=== PATIENT | female | born 1970 | race Hispanic/Latino ===

== ENCOUNTER 2021-07-19 07:18 | Day surgery (SDC) | payer BC, OTHER ==
[2021-07-16 12:43] LABS: BASOPHILS % (AUTO) 0.5 % (0.0-5.0); EOSINOPHILS % (AUTO) 4.5 % (0.0-8.0); HEMATOCRIT 42.1 % (36-48); LYMPHOCYTES % (AUTO) 35.1 % (21.0-51.0); MEAN CORPUSCULAR HEMOGLOBIN 30.2 pg (27.0-33.0); MEAN CORPUSCULAR HGB CONC 32.3 g/dL (32.0-36.0); MEAN CORPUSCULAR VOLUME 93.3 fL (79-99); MONOCYTES % (AUTO) 4.9 % (3.0-13.0); NEUTROPHILS % (AUTO) 54.5 % (40.0-77.0); PLATELET COUNT (AUTO) 184 K/uL (130-400); RED BLOOD CELL COUNT(AUTO) 4.51 MIL/uL (4.00-5.50); RED CELL DISTRIBUTION WIDTH 12.5 % (11.0-15.5); WHITE BLOOD COUNT (AUTO) 7.4 K/uL (4.8-10.8)
[2021-07-16 12:54] LABS: POTASSIUM 4.3 mmol/L (3.5-5.1)
[2021-07-18 10:54] VITALS: BP 154/83
[~2021-07-19] VITALS: Ht 154.9 cm; Wt 91.5 kg
[2021-07-19] VITALS (20 sets, daily range): BP systolic 95–136; BP diastolic 50–84
[2021-07-19] MEDS ORDERED: LIDOCAINE PF 100MG/5ML (2%) SYRINGE 5ML ONE (07:48)
[2021-07-19] MEDS ORDERED: DEXAMETHASONE SOD PHOSPHATE 10MG/ML 1ML VIAL ONE (07:48)
[2021-07-19] MEDS ORDERED: PROPOFOL 10 MG/ML 20ML VIAL IV ONE (07:49)
[2021-07-19] MEDS ORDERED: FENTANYL CITRATE PF 50 MCG/1 ML 2ML VIAL ONE (07:49)
[2021-07-19] MEDS ORDERED: ONDANSETRON 4MG INJ ONE (07:49)
[2021-07-19] MEDS ORDERED: MIDAZOLAM HCL 1 MG/ML 2ML VIAL ONE (07:49)
[2021-07-19] MEDS ORDERED: MEPERIDINE-PF 25 MG/ML SYG ONE (07:53)
[2021-07-19] MEDS ORDERED: CALDOLOR 800MG+NS 250ML 250 ML IV PRN (08:00)
[2021-07-19] MEDS ORDERED: LACTATED RINGERS 1000ML 1,000 ML IV SCH (08:00)
[2021-07-19] MEDS ORDERED: CEFAZOLIN SODIUM 1 GM VIAL IVP ONE (08:00)
[2021-07-19] MEDS ORDERED: EPHEDRINE SULFATE 50 MG/ML AMPULE ONE (08:38)
[2021-07-19] MEDS ORDERED: CEFAZOLIN SODIUM 2 GM VIAL IV ONE (08:40)
== END 2021-07-19 12:10 | disposition home or self-care (01) ==
LOC: DAH 07:18
PROVIDERS: ATTEND Obstetrics & Gynecology
DX: N39.3 Stress incontinence (female) (male) (principal); Z20.822 Contact with and (suspected) exposure to COVID-19; N81.11 Cystocele, midline; N93.9 Abnormal uterine and vaginal bleeding, unspecified; I10 Essential (primary) hypertension; E11.9 Type 2 diabetes mellitus without complications; E78.00 Pure hypercholesterolemia, unspecified; J45.909 Unspecified asthma, uncomplicated; E66.01 Morbid (severe) obesity due to excess calories; F32.9 Major depressive disorder, single episode, unspecified; F41.9 Anxiety disorder, unspecified; Z83.42 Family history of familial hypercholesterolemia; Z83.3 Family history of diabetes mellitus; Z82.49 Family history of ischemic heart disease and other diseases of the circulatory system; Z68.38 Body mass index [BMI] 38.0-38.9, adult; Z79.899 Other long term (current) drug therapy
CPT/HCPCS: 36415; 57220; 57240; 58558; 80048; 82948 ×2; 84703; 85025; 86850; 86900; 86901; 87635; A4215; A4216; A4221 ×2; A4222 ×2; A4223 ×4; A4351; A4355; A4606; A4663 ×2; A6260; C9803; J0690; J1100; J1741; J2001; J2175; J2250; J2405; J2704; J3010; J3490; J7030 ×2

== ENCOUNTER 2021-11-13 02:13 | Emergency (ER) | payer BC ==
[~2021-11-13] VITALS: Ht 154.9 cm; Wt 89.8 kg
[2021-11-13] MEDS ORDERED: DiphenhydrAMINE HCL 50 MG/ML VIAL ONE (04:24)
[2021-11-13 04:25] LABS: BASOPHILS % (AUTO) 0.4 % (0.0-5.0); EOSINOPHILS % (AUTO) 2.9 % (0.0-8.0); HEMATOCRIT 41.2 % (36-48); LYMPHOCYTES % (AUTO) 32.1 % (21.0-51.0); MEAN CORPUSCULAR HEMOGLOBIN 29.6 pg (27.0-33.0); MEAN CORPUSCULAR HGB CONC 33.3 g/dL (32.0-36.0); MONOCYTES % (AUTO) 4.4 % (3.0-13.0); NEUTROPHILS % (AUTO) 59.6 % (40.0-77.0); PLATELET COUNT (AUTO) 192 K/uL (130-400); RED BLOOD CELL COUNT(AUTO) 4.63 MIL/uL (4.00-5.50); RED CELL DISTRIBUTION WIDTH 12.3 % (11.0-15.5); WHITE BLOOD COUNT (AUTO) 10.4 K/uL (4.8-10.8)
[2021-11-13] MEDS ORDERED: PREDNISONE 20 MG TABLET ONE (04:25)
[2021-11-13] MEDS ORDERED: DiphenhydrAMINE HCL 50 MG/ML VIAL IV ONE (04:30)
[2021-11-13] MEDS ORDERED: ALBUTEROL 0.083% 2.5 MG/3 ML INH IH ONE ×3 (04:30)
[2021-11-13] MEDS ORDERED: PREDNISONE 20 MG TABLET PO ONE (04:30)
[2021-11-13 04:31] LABS: CREATININE 0.8 mg/dL (0.5-1.5); POTASSIUM 4.3 mmol/L (3.5-5.1)
[2021-11-13 04:35] LABS: ALBUMIN 3.6 g/dL (3.5-5.0); BILIRUBIN,TOTAL 0.2 mg/dL (0.2-1.0); TOTAL PROTEIN, SERUM 8.2 g/dL (6.0-8.3)
[2021-11-13 04:53] LABS: B-TYPE NATRIURETIC PEPTIDE 8 pg/mL (0-100)
[2021-11-13] MEDS ORDERED: ALBU2.5V2 IH (05:54)
[2021-11-13] MEDS ORDERED: PRED20TA3 PO (05:54)
[2021-11-13] MEDS ORDERED: ALBU8.5H8 IH (05:54)
[2021-11-13 06:00] VITALS: BP 127/68
== END 2021-11-13 06:13 | disposition home or self-care (01) ==
LOC: EDH 02:13
DX: J45.901 Unspecified asthma with (acute) exacerbation (principal); Z20.822 Contact with and (suspected) exposure to COVID-19; Z79.899 Other long term (current) drug therapy
CPT/HCPCS: 36415; 71045; 80053; 83880; 85025; 87635; 87804 ×2; 93005; 94640; 96374; 99284; C9803; J1200

== ENCOUNTER 2022-05-19 23:55 | Emergency (ER) | payer BC ==
[~2022-05-19] VITALS: Ht 154.9 cm; Wt 87.5 kg
[~2022-05-19 23:55] MED LIST: ALBU2.5V2 IH; ALBU8.5H8 IH; PRED20TA3 PO
[2022-05-20 01:30] LABS: BASOPHILS % (AUTO) 0.4 % (0.0-5.0); EOSINOPHILS % (AUTO) 2.3 % (0.0-8.0); LYMPHOCYTES % (AUTO) 33.2 % (21.0-51.0); MEAN CORPUSCULAR HEMOGLOBIN 30.1 pg (27.0-33.0); MEAN CORPUSCULAR HGB CONC 33.8 g/dL (32.0-36.0); MONOCYTES % (AUTO) 5.9 % (3.0-13.0); NEUTROPHILS % (AUTO) 57.8 % (40.0-77.0); PLATELET COUNT (AUTO) 188 K/uL (130-400); RED BLOOD CELL COUNT(AUTO) 4.38 MIL/uL (4.00-5.50); RED CELL DISTRIBUTION WIDTH 12.4 % (11.0-15.5); WHITE BLOOD COUNT (AUTO) 8.3 K/uL (4.8-10.8)
[2022-05-20 01:37] LABS: CREATININE 0.9 mg/dL (0.5-1.5); POTASSIUM 4.5 mmol/L (3.5-5.1)
[2022-05-20 01:46] LABS: ALBUMIN 3.4 g/dL (3.5-5.0)
[2022-05-20 01:59] LABS: B-TYPE NATRIURETIC PEPTIDE 13 pg/mL (0-100)
[2022-05-20 02:15] VITALS: BP 128/69
== END 2022-05-20 02:18 | disposition home or self-care (01) ==
LOC: EDH 23:55
DX: K30 Functional dyspepsia (principal); R07.89 Other chest pain; E11.9 Type 2 diabetes mellitus without complications; Z79.52 Long term (current) use of systemic steroids
CPT/HCPCS: 36415; 80053; 83880; 84484; 85025; 93005

== ENCOUNTER 2022-11-04 20:52 | Emergency (ER) | payer BC ==
[~2022-11-04] VITALS: Ht 154.9 cm; Wt 87.1 kg
[2022-11-04 20:55] VITALS: BP 149/99
[2022-11-04] MEDS ORDERED: DIAZ5TAB PO (21:12)
[2022-11-04] MEDS ORDERED: DIAZEPAM 5 MG TABLET PO ONE (21:30)
== END 2022-11-04 21:43 | disposition home or self-care (01) ==
LOC: EDH 20:52
DX: M54.32 Sciatica, left side (principal); Z79.899 Other long term (current) drug therapy

== ENCOUNTER 2025-03-11 22:09 | Emergency (ER) | payer BC ==
[~2025-03-11] VITALS: Ht 154.9 cm; Wt 83.5 kg
[~2025-03-11 22:09] MED LIST changes: +DIAZ5TAB PO
--- NOTE | 2025-03-11 22:20 | ERN ---
ED Note History of Present Illness Stated Complaint: HEADACHE, BLURRY VISION, DIZZINESS, GBW, patient comes to the ED because over the last three weeks. Patient has had intermittent headache intermittent blurry vision intermittent dizziness generalized body weakness she said this happens when she has that has positional when she is turning her head when she ambulates when she sits up. She says she does have diabetes otherwise denies any blood pressure issues dyslipidemia previous heart attacks or strokes no falls trips traumas no fevers chills cough congestion runny nose no stiff neck Chief Complaint: Multiple Complaints Time Seen by MD: 22:11 Allergies: Coded Allergies: No Known Allergies (Verified Allergy, Unknown, 07/17/21) Home Meds Active Scripts Diazepam (Valium) 5 Mg Tablet, 5 MG PO TID PRN for MODERATE PAIN, #7 TAB Prov:UZIEL RANGEL 11/04/22 Albuterol Sulfate (Albuterol Sulfate) 2.5 Mg/3 Ml Vial.neb, 2.5 MG IH Q4HPRN, #30 INH 0 Refills Prov:JOLIE WELSH MD 11/13/21 Albuterol Sulfate (Proair Hfa) 8.5 Gm Hfa.aer.ad, 2 PUFF IH Q4HPRN, #1 INHALER 0 Refills Prov:JOLIE WELSH MD 11/13/21 Prednisone (Prednisone) 20 Mg Tablet, 40 MG PO DAILY for 4 Days, #8 TAB 0 Refills Prov:JOLIE WELSH MD 11/13/21 Past Medical History Past Medical History: No Pertinent History Surgical History: None Social History: Negative, Lives with family History: Not Applicable Review of System Dictation Constitutional: Negative for fever,chills, and weight loss Eyes: Negative for injury, pain,redness, and discharge ENT: Negative for injury,pain or swelling Cardiovascular: Negative for chest pain, palpitations, and edema Respiratory: Negative for shortness of breath, cough, and wheezing, Abdomen/GI: Negative for abdominal pain, nausea, vomiting, diarrhea, and constipation Back: Negative for injury and pain : Negative for injury, bleeding and discharge MS/Extremity: Negative for injury and deformity Skin: Negative for rash, and discoloration Neuro: Negative for headache, weakness, numbness, tingling, and seizure Psych: Negative for suicide ideation, homicidal ideation, and hallucinations Initial Vital Sign VS Vital Signs Date Time Temp Pulse Resp B/P (MAP) Pulse Ox O2 Delivery O2 Flow Rate FiO2 03/11/25 22:11 98.4 80 16 149/82 97 Room Air 03/11/25 22:40 0 21 Physical Exam Dictation General: awake, alert, NAD Head/Face: Normocephalic, atraumatic Eyes: PERRL, EOMI, vision at baseline ENT: oral cavity clear, TMs clear, no signs of infection Neck: Trachea midline, supple, no nuchal rigidity Cardiovascular: RRR, normal S1/S2, No MRGs, no JVD Respiratory: CTAB, no respiratory distress, No rales or wheezes Abdomen: Soft, non-tender, non-distended, normal bowel sounds, no guarding or rebound. Skin: Warm, dry, normal turgor, no rash MS/Extremity: Pulses equal, no cyanosis, neurovascular intact, FROM Neuro: COAx4, GCS 15, strength 5/5, CN 2-12 intact, normal cerebellar exam, normal gait, Psych: Normal behavior, mood, and affect normal Patient is alert and oriented speaking she is able to ambulate. NIH of 0 cerebellar testing with his on that has within normal limits no other difficulties or issues. Results (Laboratory/Radiology) Laboratory/Radiology Laboratory Tests Test 03/11/25 22:37 White Blood Count 12.6 K/uL (4.8-10.8) H Red Blood Count 4.73 MIL/uL (4.00-5.50) Hemoglobin 14.5 g/dL (12.0-16.0) Hematocrit 41.5 % (36-48) Mean Corpuscular Volume 87.7 fL (79-99) Mean Corpuscular Hemoglobin 30.7 pg (27.0-33.0) Mean Corpuscular Hemoglobin Concent 34.9 g/dL (32.0-36.0) Red Cell Distribution Width 12.0 % (11.0-15.5) Platelet Count 77 K/uL (130-400) L Mean Platelet Volume 12.6 fL (7.5-10.5) H Immature Granulocyte % (Auto) 0.6 % (0-1) Neutrophils (%) (Auto) 76.6 % (40.0-77.0) Lymphocytes (%) (Auto) 19.6 % (21.0-51.0) L Monocytes (%) (Auto) 2.9 % (3.0-13.0) L Eosinophils (%) (Auto) 0.1 % (0.0-8.0) Basophils (%) (Auto) 0.2 % (0.0-5.0) Neutrophils # (Auto) 9.6 K/uL (1.8-7.7) H Lymphocytes # (Auto) 2.5 K/uL (1.0-4.8) Monocytes # (Auto) 0.4 K/uL (0.1-1.0) Eosinophils # (Auto) 0.01 K/uL (0.00-0.70) Basophils # (Auto) 0.02 K/uL (0.00-0.20) Absolute Immature Granulocyte (auto 0.08 K/uL (0-1) Nucleated Red Blood Cells 0.0 % (0.0-0.19) Sodium Level 132 mmol/L (136-145) L Potassium Level 4.6 mmol/L (3.5-5.1) Chloride Level 99 mmol/L (101-111) L Carbon Dioxide Level 23 mmol/L (21-32) Blood Urea Nitrogen 22 mg/dL (7-18) H Creatinine 0.9 mg/dL (0.5-1.0) Glomerular Filtration Rate Calc 76 mL/min (>90) Random Glucose 339 mg/dL (70-105) H Total Calcium 9.4 mg/dL (8.5-10.1) Troponin I High Sensitivity 5 ng/L (4-50) ED Course ED Course Orders Procedure Category Date Status Time Cbc With Differential LAB 03/11/25 Complete 22:16 Ct Head/Brain W/O CT 03/11/25 Resulted Contrast 22:16 Chest 1vw RAD 03/11/25 Resulted 22:16 12 Lead Ekg Tracing- EKG 03/11/25 Logged Technical 22:16 Troponin I High LAB 03/11/25 Complete Sensitivity 22:16 Basic Metabolic Panel LAB 03/11/25 Complete 22:16 Lactated Ringers PHA 03/11/25 Complete 1000ml (Lactated 22:30 Morphine 4mg Syg PHA 03/11/25 Complete (Morphine 4mg Syg) 22:30 Ondansetron 4mg Inj PHA 7/26/25 Complete (Zofran 4mg Inj) 22:30 Current Medications Medications (Trade) Dose Ordered Sig/Stefani Route PRN Reason Start Time Stop Time Status Last Admin Dose Admin Lactated Ringer's 1,000 ml @ 0 mls/hr ONCE ONCE IV 03/11/25 22:30 03/11/25 22:31 DC 03/11/25 23:16 Morphine Sulfate (morPHINE 4MG SYG) 4 mg ONCE ONCE IVP 03/11/25 22:30 03/11/25 22:31 DC 03/11/25 23:16 Ondansetron HCl (zoFRAN 4MG INJ) 4 mg ONCE ONCE IVP 03/11/25 22:30 03/11/25 22:31 DC 03/11/25 23:15 Vital Signs Date Time Temp Pulse Resp B/P (MAP) Pulse Ox O2 Delivery O2 Flow Rate FiO2 03/11/25 22:40 98.1 79 18 142/77 98 Room Air* 0 21 03/11/25 22:11 98.4 80 16 149/82 97 Room Air Medical Decision Making MDM I told the patient. That this is likely. Migraine headache she said she has a had this symptomatology before but usually went away on its own. No signs or presentation presentation or symptoms of meningitis traumatic head injury. Denies any chest pain or shortness of breath told her also could be peripheral vertigo. Umbrella term BPV. The could be other issues. But not have acute stroke etiology. Even then she is out of stroke window. For tPA and/or LVO occlusion. That has van negative she also to additionally we will need to follow up with Ophthalmology. No diabetes she has a follow up for retinopathy. Does not have any vision loss. Or acute symptoms that has come and go. She was in agreement with this she felt relief. She is in agreement above-stated plan MDM: Differential diagnosis: Rationale: Tests considered and ordered secondary to shared decision making include: Previous outside records reviewed: Old ER visits. Risk of complication and/or morbidity or mortality of patient management: None Medications-Per medication reconciliation Need for hospitalization: Patient does not meet criteria for hospitalization. Need for emergency major/minor surgery: No There are no social concerns with this patient. Prescription drug management Prescriptions will include symptomatic care Patient's prior external medical records from other ER visits were reviewed by me as indicated. Prior testing and results from previous visits were reviewed. Prior tests were taken into account with medical decision making and resource utilization, independent historian/historians were used to obtain complete medical history. I independently interpreted the test that were performed, results were reviewed by me and considered findings on radiology if ordered. Medical management and examination interpretation discussions were had by me with other qualified healthcare professionals as indicated for the patient's care. DX & DISP Disposition: Discharge Departure Impression: Primary Impression: Migraine Additional Impression: Peripheral vertigo Condition: Stable Referrals: MIKE CANNON (PCP) DEREK CHASE MD Mar 11, 2025 22:20
[2025-03-11 22:48] LABS: IMMATURE GRANULOCYTE ABSOLUTE 0.08 K/uL (0-1); NUCLEATED RED BLOOD CELLS 0.0 % (0.0-0.19); PLATELET COUNT (AUTO) 77 K/uL (130-400); RED BLOOD CELL COUNT(AUTO) 4.73 MIL/uL (4.00-5.50); RED CELL DISTRIBUTION WIDTH 12.0 % (11.0-15.5); WHITE BLOOD COUNT (AUTO) 12.6 K/uL (4.8-10.8)
[2025-03-11 23:00] LABS: CREATININE 0.9 mg/dL (0.5-1.0); GLOMERULAR FILTR. RATE CALC 76.0 mL/min (>90); GLUCOSE,RANDOM 339.0 mg/dL (70-105); SODIUM SERUM 132.0 mmol/L (136-145); UREA NITROGEN, BLOOD 22.0 mg/dL (7-18)
[2025-03-11] MEDS: LACTATED RINGERS 1000ML 1,000 ML IV ONE (23:16)
--- NOTE | 2025-03-11 23:27 | HMCIMG ---
EXAM: CR Chest, 1 view. CLINICAL HISTORY: Cough. COMPARISON: Chest x-ray dated 09/07/07. FINDINGS: The lungs show no infiltrate or other acute findings. No pleural effusion or pneumothorax. The cardiomediastinal silhouette is within normal limits. No acute osseous abnormality. IMPRESSION: No acute cardiopulmonary pathology is evident. No gross interval changes. /[place]
--- NOTE | 2025-03-11 23:52 | HMCIMG ---
EXAMINATION: CT Head Without IV contrast. CLINICAL HISTORY: Patient presents with dizziness. COMPARISON: None provided. TECHNIQUE: Axial computed tomography images of the head/brain without intravenous contrast. Sagittal and coronal reformatted images submitted for interpretation. FINDINGS: BRAIN: No evidence of acute hemorrhage. No mass lesion. No CT evidence for acute territorial infarct. No midline shift or extra-axial collections. VENTRICLES: No hydrocephalus. ORBITS: The orbits are unremarkable. SINUSES AND MASTOIDS: The paranasal sinuses and mastoid air cells are clear. BONES: No fracture. SOFT TISSUES: Unremarkable. IMPRESSION: No acute intracranial abnormality. /[place]
--- NOTE | 2025-03-12 00:30 | EKG ---
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
[2025-03-12] MEDS: MAG/ALUM/SIMETH 30 ML UDCUP PO ONE (00:41)
[2025-03-12] MEDS: DICYCLOMINE HCL 10 MG/5 ML ML PO ONE (00:41)
[2025-03-12] MEDS: LIDOCAINE HCL 2% VISCOUS 15 ML UDCUP PO ONE (00:41)
[2025-03-12 00:46] VITALS: BP 140/78; PULSE 75; RESP 17; TEMP 98.1; O2SAT 96
== END 2025-03-12 00:57 | disposition home or self-care (01) ==
LOC: EDH 22:09
DX: G43.909 Migraine, unspecified, not intractable, without status migrainosus (principal); H81.399 Other peripheral vertigo, unspecified ear; E11.9 Type 2 diabetes mellitus without complications; Z79.52 Long term (current) use of systemic steroids
CPT/HCPCS: 99284; 96374; 70450; 71045; 96361; 96375; 84484; 80048; 85025; 36415; 93005; J7120; J2405; J2270

== ENCOUNTER 2025-08-07 02:44 | Emergency (ER) | payer BC ==
[~2025-08-07] VITALS: Ht 162.6 cm; Wt 81.6 kg
[2025-08-07 02:45] VITALS: BP 161/97; PULSE 76; RESP 20; TEMP 98
[2025-08-07] MEDS: CYCLOBENZAPRINE HCL 10 MG TABLET PO ONE (03:54)
[2025-08-07] MEDS: TRIAMCINOLONE ACETONIDE 40 MG/ML 1ML VIAL IM ONE (03:54)
[2025-08-07] MEDS: ORPHENADRINE 60MG/2ML IM ONE (03:55)
--- NOTE | 2025-08-07 04:04 | ERN ---
ED Note History of Present Illness Stated Complaint: RT NECK/SHOULDER PAIN Chief Complaint: Neck Pain Time Seen by MD: 02:59 Dictation: This is a 55-year-old pleasant lady came into the ER stating that 20 minutes prior to presentation she woke up from her sleep to use the restroom and had severe pain in her right side of the neck radiating all the way to the right shoulder. No history of any trauma recently. No fever chills or rigors. No recent motor vehicle accident. No bladder or bowel incontinence. No tingling numbness of extremities. No weakness. Able to ambulate without problems Temperature 98 pulse 76 respirations 20 blood pressure 161/97 with a pulse oximetry of 98% on room air Chronic medical problems include hypercholesterolemia and diabetes mellitus type 2 Allergies: Coded Allergies: No Known Allergies (Verified Allergy, Unknown, 07/17/21) Home Meds Active Scripts Diazepam (Valium) 5 Mg Tablet, 5 MG PO TID PRN for MODERATE PAIN, #7 TAB Prov:UZIEL RANGEL 11/04/22 Albuterol Sulfate (Albuterol Sulfate) 2.5 Mg/3 Ml Vial.neb, 2.5 MG IH Q4HPRN, #30 INH 0 Refills Prov:JOLIE WELSH MD 11/13/21 Albuterol Sulfate (Proair Hfa) 8.5 Gm Hfa.aer.ad, 2 PUFF IH Q4HPRN, #1 INHALER 0 Refills Prov:JOLIE WELSH MD 11/13/21 Prednisone (Prednisone) 20 Mg Tablet, 40 MG PO DAILY for 4 Days, #8 TAB 0 Refills Prov:JOLIE WELSH MD 11/13/21 Past Medical History Past Medical History: Diabetes-Type II, High Cholesterol, Other Additional Past Medical Hx: SEASONAL ALLERGIES Surgical History: Cholecystectomy Social History: Negative, Lives with family History: Not Applicable RN Note Reviewed/Agreed w/PFSH: Yes Review of System Dictation Constitutional: Negative for fever,chills, and weight loss [id number] neck pain radiating from the neck all the way to the right shoulder along the arm Eyes: Negative for injury, pain,redness, and discharge ENT: Negative for injury,pain or swelling Cardiovascular: Negative for chest pain, palpitations, and edema Respiratory: Negative for shortness of breath, cough, and wheezing, Abdomen/GI: Negative for abdominal pain, nausea, vomiting, diarrhea, and constipation Back: Negative for injury and pain : Negative for injury, bleeding and discharge MS/Extremity: Negative for injury and deformity Skin: Negative for rash, and discoloration Neuro: Negative for headache, weakness, numbness, tingling, and seizure Psych: Negative for suicide ideation, homicidal ideation, and hallucinations Initial Vital Sign VS Vital Signs Date Time Temp Pulse Resp B/P (MAP) Pulse Ox O2 Delivery O2 Flow Rate FiO2 08/07/25 02:45 98.1 76 20 161/97 98 Room Air Physical Exam Dictation General: awake, alert, NAD Head/Face: Normocephalic, atraumatic Eyes: PERRL, EOMI, vision at baseline ENT: oral cavity clear, TMs clear, no signs of infection Neck: Trachea midline, supple, no nuchal rigidity right-sided paraspinal muscle spasm and some tenderness on palpation but no point tenderness on the vertebrae no step-off noted. Cardiovascular: RRR, normal S1/S2, No MRGs, no JVD Respiratory: CTAB, no respiratory distress, No rales or wheezes Abdomen: Soft, non-tender, non-distended, normal bowel sounds, no guarding or rebound. Skin: Warm, dry, normal turgor, no rash MS/Extremity: Pulses equal, no cyanosis, neurovascular intact, FROM Neuro: COAx4, GCS 15, strength 5/5, CN 2-12 intact, normal cerebellar exam, normal gait, Psych: Normal behavior, mood, and affect normal Extremities-trace edema without any palpable cords, Homans sign is negative ED Course ED Course Orders Procedure Category Date Status Time Orphenadrine Citrate PHA 08/07/25 Complete (Norflex) 03:30 Triamcinolone Acet PHA 08/07/25 Complete 40mg/Ml 1ml (Kenalog 03:30 Cyclobenzaprine Hcl PHA 08/07/25 Complete (Cyclobenzaprine Hcl 03:30 Hydromorphone 0.5mg PHA 08/07/25 Complete Syg (Dilaudid 0.5mg 04:30 Current Medications Medications (Trade) Dose Ordered Sig/Stefani Route PRN Reason Start Time Stop Time Status Last Admin Dose Admin Cyclobenzaprine HCl (Cyclobenzaprine HCl) 10 mg ONCE ONCE PO 08/07/25 03:30 08/07/25 03:37 DC 08/07/25 03:54 Hydromorphone HCl (DiLAUDid 0.5MG INJ) 0.5 mg ONCE ONCE IM 08/07/25 04:30 08/07/25 04:32 DC 08/07/25 04:40 Orphenadrine Citrate (Norflex) 60 mg ONCE ONCE IM 08/07/25 03:30 08/07/25 03:37 DC 08/07/25 03:55 Triamcinolone Acetonide (Kenalog 40) 40 mg ONCE ONCE IM 08/07/25 03:30 08/07/25 03:37 DC 08/07/25 03:54 Vital Signs Date Time Temp Pulse Resp B/P (MAP) Pulse Ox O2 Delivery O2 Flow Rate FiO2 08/07/25 02:45 98.1 76 20 161/97 98 Room Air Medical Decision Making MDM Differential diagnosis: Cervical spondylosis, radiculopathy, cervicalgia, degenerative disc disease, paraspinal muscle spasm, central canal stenosis, dish, optimal stenosis, herniated intervertebral discs, spondylolisthesis This is a 55-year-old pleasant lady came into the ER stating that 20 minutes prior to presentation she woke up from her sleep to use the restroom and had severe pain in her right side of the neck radiating all the way to the right shoulder. No history of any trauma recently. No fever chills or rigors. No recent motor vehicle accident. No bladder or bowel incontinence. No tingling numbness of extremities. No weakness. Able to ambulate without problems Temperature 98 pulse 76 respirations 20 blood pressure 161/97 with a pulse oximetry of 98% on room air Chronic medical problems include hypercholesterolemia and diabetes mellitus type 2 Patient was initially given nonsteroidal anti-inflammatory medication with a muscle relaxant. A dose of steroid was also given. Reassessment at 30 minutes to 45 minutes patient stated that she did not improve at all. A dose of opioid was given. 5:40 a.m. patient states that she has feeling a lot better and would like to be discharged to home. He will follow up with her primary care physician Previous outside records reviewed: Old ER visits. Risk of complication and/or morbidity or mortality of patient management: None Medications-Per medication reconciliation Need for hospitalization: Patient does not meet criteria for hospitalization. Need for emergency major/minor surgery: No There are no social concerns with this patient. Prescription drug management Prescriptions will include symptomatic care Patient's prior external medical records from other ER visits were reviewed by me as indicated. Prior testing and results from previous visits were reviewed. Prior tests were taken into account with medical decision making and resource utilization, independent historian/historians were used to obtain complete medical history. I independently interpreted the test that were performed, results were reviewed by me and considered findings on radiology if ordered. Medical management and examination interpretation discussions were had by me with other qualified healthcare professionals as indicated for the patient's care. Problem List Problem List: (1) Cervical radiculopathy (2) Cervical paraspinal muscle spasm DX & DISP Disposition: Discharge Departure Impression: Primary Impression: Cervical radiculopathy Additional Impression: Cervical paraspinal muscle spasm Condition: Stable Scripts Cyclobenzaprine HCl (Cyclobenzaprine HCl) 10 Mg Tablet 1 TAB PO TID for muscle spasms for 10 Days, #30 TAB 0 Refills Prov: NAHID WHITESIDE MD 08/07/25 Ketorolac Tromethamine (Toradol) 10 Mg Tab 10 MG PO QID for pain for 5 Days, #20 TAB 0 Refills Prov: NAHID WHITESIDE MD 08/07/25 Prednisone (Prednisone) 20 Mg Tablet 1 TAB PO AD for 6 Days, #14 TAB 0 Refills TAKE 1 TAB BY MOUTH THREE TIMES PER DAY X3 DAYS, THEN TAKE 1 TAB BY MOUTH TWICE A DAY X2 DAYS, THEN TAKE 1 TAB BY MOUTH ONCE A DAY X1 DAY. Prov: NAHID WHITESIDE MD 08/07/25 Additional Instructions: Patient and the caregiver have been informed of all the diagnostic tests and the imaging conducted during the today's visit to the emergency room and has verbalized understanding of the results I have personally reviewed and interpreted all diagnostic exams performed here in the ER today as well as the vital signs documented by the nursing staff. The patient is now being discharged to home and should follow up with the primary care physician or the specialist as directed by the ER staff. Follow-up with primary care provider in 1 to 2 days. Take medications as directed here in the emergency room. Okay to continue home medications unless otherwise discussed during your visit in the emergency room today. Return to your nearest emergency room if symptoms worsen or if there is no improvement. Call 911 if you need immediate assistance. Take Tylenol or Motrin [id number] as needed and if no contraindications are present. Increase oral hydration. A wound culture or urine culture was ordered here in the emergency room department please follow-up with primary care provider and advise them to get repeat ports from our facility. If you had any Devon wrap/splints that were applied here, please do not remove them until you see your primary care or specialty. Educated patient on adverse effects of medications and transient elevation in the sugars especially with the steroids he verbalized understanding May also use [id number] topical muscle rub or Biofreeze etcetera Referrals: MIKE CANNON (PCP) NAHID WHITESIDE MD Aug 07, 2025 04:04
[2025-08-07] MEDS ORDERED: KETO10 PO (05:40)
[2025-08-07] MEDS ORDERED: CYCL-309 PO (05:40)
[2025-08-07] MEDS ORDERED: PRED20TA3 PO (05:40)
== END 2025-08-07 06:30 | disposition home or self-care (01) ==
LOC: EDH 02:44
DX: M54.12 Radiculopathy, cervical region (principal); E11.9 Type 2 diabetes mellitus without complications; E78.00 Pure hypercholesterolemia, unspecified; M62.838 Other muscle spasm; Z79.52 Long term (current) use of systemic steroids; Z90.49 Acquired absence of other specified parts of digestive tract; Z79.899 Other long term (current) drug therapy
CPT/HCPCS: 99284; 96372 ×3; J3301; J1171; J2360